=== PATIENT | male | born 1985 | race American Indian/Alaskan Native ===

== ENCOUNTER 2021-09-02 11:36 | Emergency (ER) | payer SELFPAY ==
[2021-09-03 02:58] VITALS: BP 101/53
[2021-09-03] MEDS ORDERED: dexAMETHasone 20 MG/5 ML VIAL IM ONE (03:20)
[2021-09-03] MEDS ORDERED: KETOROLAC 30 MG/1 ML INJ IM ONE (03:20)
[2021-09-03] MEDS ORDERED: diazePAM 5 MG TAB PO ONE (03:21)
== END 2021-09-03 05:30 | disposition left against medical advice (07) ==
LOC: ED 11:36
DX: M54.50 Low back pain, unspecified (principal); Z53.21 Procedure and treatment not carried out due to patient leaving prior to being seen by health care provider